=== PATIENT | male | born 1965 | race African-American/Black ===

== ENCOUNTER 2022-10-21 02:07 | Emergency (ER) | payer OTHER, MEDICAID ==
[~2022-10-21] VITALS: Ht 180.3 cm; Wt 104.0 kg
[2022-10-21] MEDS ORDERED: IBUPROFEN 400MG TABLET PO ONE (09:45)
[2022-10-21] MEDS ORDERED: ACETAMINOPHEN 325MG TABLET PO ONE (09:45)
[2022-10-21 10:47] VITALS: BP 132/84
== END 2022-10-21 10:49 | disposition home or self-care (01) ==
LOC: ER 02:07
DX: S01.81XA Laceration without foreign body of other part of head, initial encounter (principal); E78.00 Pure hypercholesterolemia, unspecified; I10 Essential (primary) hypertension; F17.200 Nicotine dependence, unspecified, uncomplicated; W18.39XA Other fall on same level, initial encounter; Y93.89 Activity, other specified; Y92.89 Other specified places as the place of occurrence of the external cause; Y99.8 Other external cause status
CPT/HCPCS: 12011; 99283